=== PATIENT | male | born 2000 | race African-American/Black ===

== ENCOUNTER 2020-12-05 03:49 | Emergency (ER) | payer MEDICAID ==
[~2020-12-05] VITALS: Ht 180.3 cm; Wt 70.9 kg
[2020-12-05] MEDS ORDERED: LIDOCAINE 1% 10 ML VIAL ID ONE (04:15)
[2020-12-05] MEDS ORDERED: PERTUSS(ACELL),DIPH,TET VAC/PF 0.5 ML SYRINGE IM. ONE (04:15)
[2020-12-05] MEDS ORDERED: BACITRACIN 0.9 GM PACKET OINTMENT TP ONE ×2 (04:45→05:00)
[2020-12-05 04:50] LABS: AMPHET/METH SCREEN,URINE NEGATIVE (NEGATIVE); BARBITURATE SCREEN, URINE NEGATIVE (NEGATIVE); BENZODIAZEPINES SCREEN,URINE POSITIVE (NEGATIVE); CANNABINOID SCREEN,URINE POSITIVE (NEGATIVE); COCAINE SCREEN,URINE NEGATIVE (NEGATIVE); METHADONE SCREEN, URINE NEGATIVE (NEGATIVE); OPIATE SCREEN,URINE NEGATIVE (NEGATIVE)
[2020-12-05 04:54] LABS: PHENCYCLIDINE SCREEN,URINE NEGATIVE (NEGATIVE)
[2020-12-05] MEDS ORDERED: IOHEXOL 350 MG/ML 150 ML VIAL ONE (05:00)
[2020-12-05] MEDS ORDERED: SODIUM CHLORIDE 0.9% 100 ML ONE (05:00)
[2020-12-05 05:38] LABS: BASOPHILS % (AUTO) 0.3 % (0.0-2.0); EOSINOPHILS % (AUTO) 0 % (1.0-6.0); HEMOGLOBIN 13.4 g/dL (13.5-17.5); LYMPHOCYTES % (AUTO) 7.1 % (22.0-44.0); MEAN CORPUSCULAR HEMOGLOBIN 31.9 pg (26.0-34.0); MEAN CORPUSCULAR HGB CONC 34.5 G/dL (31.0-37.0); MEAN CORPUSCULAR VOLUME 93 fL (80-100); MONOCYTES % (AUTO) 7.2 % (2.0-9.0); PLATELET COUNT (AUTO) 238 K/uL (150-450); RED BLOOD CELL COUNT(AUTO) 4.21 MIL/uL (4.50-5.90); RED CELL DISTRIBUTION WIDTH 13.2 % (11.5-14.5)
[2020-12-05 05:40] LABS: NEUTROPHILS % (AUTO) 85.4 % (40.0-70.0)
[2020-12-05 05:44] LABS: ANION GAP 14 mmol/L (8-16); CALCIUM, TOTAL 9.9 mg/dL (8.8-10.5); CARBON DIOXIDE 26 mmol/L (22-29); CHLORIDE 99 mmol/L (98-107); CREATININE 0.95 mg/dL (0.60-1.30); GLOMERULAR FILTR. RATE CALC > 60 mL/min (>60); GLUCOSE,RANDOM 89 mg/dL (70-110); SODIUM SERUM 139 mmol/L (136-145); UREA NITROGEN, BLOOD 11 mg/dL (7-18)
[2020-12-05 05:49] LABS: ALANINE AMINOTRANSFERASE 53 U/L (12-78); ALBUMIN 5.2 g/dL (3.4-5.0); ALKALINE PHOSPHATASE 90 U/L (46-116); ASPARTATE AMINOTRANSFERASE 80 U/L (15-37); BILIRUBIN,TOTAL 1.1 mg/dL (0.1-1.0); TOTAL PROTEIN, SERUM 7.7 g/dL (6.4-8.2)
[2020-12-05] MEDS ORDERED: AMOX TR/POT CLAV 875 MG/125 MG TABLET PO ONE (06:00)
[2020-12-05 07:05] VITALS: BP 138/82
== END 2020-12-05 07:27 | disposition home or self-care (01) ==
LOC: EMS 03:49 → EDBD 03:49 → EMS 07:27
DX: S61.511A Laceration without foreign body of right wrist, initial encounter (principal); S51.011A Laceration without foreign body of right elbow, initial encounter; S91.011A Laceration without foreign body, right ankle, initial encounter; W54.0XXA Bitten by dog, initial encounter; Y93.55 Activity, bike riding; Y92.89 Other specified places as the place of occurrence of the external cause; Y99.8 Other external cause status
CPT/HCPCS: 12001; 36415; 71045; 73206; 73706; 80053; 80307; 85025; 90471; 90715; 93005; 99285; A9575; G0480; J3490; J7050